=== PATIENT | male | born 1960 | race Caucasian/White ===

== ENCOUNTER 2020-01-01 14:03 | Emergency (ER) | payer BC, OTHER ==
[~2020-01-01] VITALS: Ht 182.9 cm; Wt 133.8 kg
--- OUTSIDE RECORDS SUMMARY | 2020-01-01 14:06 | XMS REPORT | Summary of Care ---
Author Author Sveta Sal M.A. Organization Unknown Address [facility] Phone Unavailable Care Team Providers Care General Repairer Name Role Phone Sveta Sal M.A. 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: Active Stress reaction (308.9, F43.0) Status: Active Mixed hyperlipidemia (272.2, E78.2) Status: Active Need for Tdap vaccination (V06.1, Z23) Status: Active Colon cancer screening (V76.51, Z12.11) Status: Active Sebaceous cyst (706.2, L72.3) Status: Active HTN (hypertension) (401.9, I10) Status: Active Hyperlipidemia (272.4, E78.5) Status: Active Morbid obesity (278.01, E66.01) Status: Active Sleep disturbance (780.50, G47.9) Status: Active Colonoscopy refused (V64.2, Z53.20) Status: Active Medications Name Dates Details Lisinopril-hydroCHLOROthiazide 20-12.5 MG Oral Tablet TAKE 1 TABLET BY MOUTH DAILY. Quantity: 90 IGNACIO FOSTER M.D. * Start : 04-Oct-2017 Active Bisoprolol Fumarate 10 MG Oral Tablet TAKE 1 TABLET BY MOUTH EVERY DAY. * Quantity: 90 Refills: 1 IGNACIO FOSTER M.D. * Start : 04-Oct-2017 Active Lovastatin 20 MG Oral Tablet TAKE 1 TABLET DAILY AT DINNER. * Quantity: 90 Refills: 1 IGNACIO FOSTER M.D. * Start : 17-Jan-2018 Active amLODIPine Besylate 10 MG Oral Tablet TAKE 1 TABLET BY MOUTH EVERY DAY. * Quantity: 90 Refills: 1 IGNACIO FOSTER M.D. * Start : 05-Apr-2018 Active Cialis 20 MG Oral Tablet TAKE 1 TABLET 1 HOUR BEFORE ACTIVITY NEEDED. * Quantity: 4 Refills: 3 HERB ABBASI M.D.ERT * Start : 05-Apr-2018 Active Allergies and Adverse Reactions Name Dates Details No Known Drug Allergies (Allergy) Status: Active Procedures Procedure Dates Details Procedures not documented Immunization Name Dates Details Tdap (Boostrix) Lot #: [id number] on: 29-Oct-2018 Fluzone Quadrivalent 0.5 ML Intramuscular Suspension Comments: refused Family History Name Dates Details Family history of heart attack (V17.3, Z82.49) Status: Active Social History Name Dates Details - Status: Name Dates Details Former smoker Vital Signs Date Test Result Details :33 BP Systolic 156 mm[Hg] Status: Comments: Location: RLE; Position: Sitting BP Diastolic 88 mm[Hg] Status: Comments: Location: RLE; Position: Sitting Heart Rate 51 /min Status: Height 72 in Status: Weight 341 lb Status: Body Mass Index Calculated 46.25 kg/m2 Status: Body Surface Area Calculated 2.67 m2 Status: Temperature 97.5 f Status: Comments: Method: Temporal Respiration Rate 16 /min Status: Results Date Description Value Details :20 [[facility]] LIPID PANEL CHOLESTEROL, TOTAL 128 mg/dl (Normal) Range: <200 HDL CHOLESTEROL 37 mg/dl (Below low threshold) Range: >40 TRIGLYCERIDES 129 mg/dl (Normal) Range: <150 LDL-CHOLESTEROL 70 {MG/DL__CAL} (Normal) Comments: Reference range: <100 Desirable range <100 mg/dL for primary prevention; <70 mg/dL for patients with CHD or diabetic patients with > or=2 CHD risk factors. LDL-C is now calculated using sage Gurrola calculation, which is a validated novel method providing better accuracy than the Friedewald equation in the estimation of LDL-C. Suresh ROSS et al. JEFF. 2013;310(19): 9074-2678 (http:/ /education.Nasty Gal.LiveIntent/faq/XGN305) CHOL/HDLC RATIO 3.5 {CALC} (Normal) Range: <5.0 NON HDL CHOLESTEROL 91 {MG/DL__CAL} (Normal) Range: <130 Comments: For patients with diabetes plus 1 major ASCVD risk factor, treating to a non-HDL-C goal of <100 mg/dL (LDL-C of <70 mg/dL) is considered a therapeutic option. :20 [[facility]] CMP W/EGFR GLUCOSE 86 mg/dl (Normal) Range: 65-99 Comments: Fasting reference interval UREA NITROGEN (BUN) 14 mg/dl (Normal) Range: 7-25 CREATININE 0.87 mg/dl (Normal) Range: 0.70-1.33 Comments: For patients >49 years of age, the reference limitfor Creatinine is approximately 13% higher for peopleidentified as -[place]. eGFR NON- 94 {ML/MIN/1.7} (Normal) Range: > OR=60 eGFR 109 {ML/MIN/1.7} (Normal) Range: > OR=60 BUN/CREATININE RATIO NOT APPLICABLE {CALC} Range: 6-22 SODIUM 137 mmol/L (Normal) Range: 135-146 POTASSIUM 4.7 mmol/L (Normal) Range: 3.5-5.3 CHLORIDE 101 mmol/L (Normal) Range: 98-110 CARBON DIOXIDE 31 mmol/L (Normal) Range: 20-32 CALCIUM 8.9 mg/dl (Normal) Range: 8.6-10.3 PROTEIN, TOTAL 7.6 g/dl (Normal) Range: 6.1-8.1 ALBUMIN 4.1 g/dl (Normal) Range: 3.6-5.1 GLOBULIN 3.5 {G/DL__CALC} (Normal) Range: 1.9-3.7 ALBUMIN/GLOBULIN RATIO 1.2 {CALC} (Normal) Range: 1.0-2.5 BILIRUBIN, TOTAL 0.7 mg/dl (Normal) Range: 0.2-1.2 ALKALINE PHSPHATASE 49 u/l (Normal) Range: 40-115 AST 18 u/l (Normal) Range: 10-35 ALT 21 u/l (Normal) Range: 9-46 [id number] [[facility]] TSH, 3RD GENERATION W/REFLEX TO FT4 Comments: REPORT COMMENT:FASTING:YES TSH, 3RD GENERATION W/REFLEX TO FT4 0.72 {MIU/L} (Normal) Range: 0.40-4.50 Plan of Care Name Dates Details Planned Observations Planned Goals not documented Instructions Name Dates Details Instructions not documented Encounters Appointment; RADHA ABBASI M.D. Encounter Diagnosis: Problem not documented On: 17-Jan-2018 10:00 Appointment; RADHA ABBASI M.D. Encounter Diagnosis: Problem not documented On: 05-Apr-2018 8:15 Appointment; RADHA ABBASI M.D. Encounter Diagnosis: Problem not documented On: 02-May-2018 8:00 Appointment; IGNACIO FOSTER M.D. Encounter Diagnosis: Problem not documented On: 29-Oct-2018 9:00 Appointment; IGNACIO FOSTER M.D. Encounter Diagnosis: Problem not documented On: 09-Jul-2019 10:15 Appointment; WESLEY PALMER P.A. Encounter Diagnosis: Problem not documented On: 11-Nov-2019 7:45
--- OUTSIDE RECORDS SUMMARY | 2020-01-01 14:06 | XMS REPORT | Summary of Care ---
Author Author WESLEY NAILS Organization Unknown Address Unknown Phone Unavailable Care Team Providers Care Psychiatric Clinical Nurse Specialist Name Role Phone RADHA ABBASI M.D. Unavailable Unavailable IGNACIO FOSTER M.D. Unavailable Unavailable WESLEY NAILS Unavailable Unavailable Ignacio Foster MD Unavailable Unavailable [...] 20 MG Oral Tablet TAKE 1 TABLET BY MOUTH DAILY AT DINNER * Quantity: 90 Refills: 1 WESLEY NAILS * Start : 17-Jan-2018 Active amLODIPine Besylate 10 MG Oral Tablet TAKE 1 TABLET BY MOUTH EVERY DAY. * Quantity: 90 Refills: 1 IGNACIO FOSTER M.D. * Start : 05-Apr-2018 Active Cialis 20 MG Oral Tablet TAKE 1 TABLET 1 HOUR BEFORE ACTIVITY NEEDED. * Quantity: 4 Refills: 3 RADHA ABBASI M.D. * Start : 05-Apr-2018 Active Allergies and [...] smoker Vital Signs Date Test Result Details No Known Vitals to report Results Date Description Value Details Results not documented Plan of Care Name Dates Details Planned Observations Planned Goals not documented Interventions Provided Medication Changes* Lovastatin 20 MG Oral Tablet - Renew Instructions Name Dates Details Instructions not documented [...]
--- OUTSIDE RECORDS SUMMARY | 2020-01-01 14:06 | XMS REPORT | Summary of Care ---
Author Author Kerry Long R.N. Unknown Address Unknown Phone Unavailable Care Team Providers Care Value Stream Leader Name Role Phone RADHA ABBASI M.D. Unavailable [...] TABLET BY MOUTH DAILY. Quantity: 90 IGNACIO FOSTRE M.D. * Start : 04-Oct-2017 Active Bisoprolol [...]
[2020-01-01 14:59] LABS: BASOPHILS # (AUTO) 0.1 (0.0-0.1); BASOPHILS % 1.3 % (0.0-1.0); EOSINOPHILS # (AUTO) 0.4 (0.0-0.4); EOSINOPHILS % 4.4 % (0.0-6.0); HEMATOCRIT 42.5 % (38.2-49.6); HEMOGLOBIN 13.7 g/dL (14.0-18.0); LYMPHOCYTES # (AUTO) 2.4 (1.0-3.2); LYMPHOCYTES % 25.1 % (18.0-39.1); MEAN CORPUSCULAR HEMOGLOBIN 30.2 pg (28-32); MEAN CORPUSCULAR HGB CONC 32.2 g/dL (31-35); MEAN CORPUSCULAR VOLUME 93.6 fL (81-99); NEUTROPHILS # (AUTO) 5.4 (2.1-6.9); NEUTROPHILS % 57.1 % (38.7-80.0); PLATELET COUNT 296 x10e3/uL (140-360); RED BLOOD COUNT 4.54 x10e6/uL (4.3-5.7); RED CELL DISTRIBUTION WIDTH 13.2 % (11.7-14.4)
[2020-01-01 15:10] LABS: INR 1.11; PROTHROMBIN TIME 14.6 seconds (11.9-14.5)
[2020-01-01 15:11] LABS: PARTIAL THROMBOPLASTIN TIME 31.6 seconds (23.8-35.5)
[2020-01-01 15:20] LABS: ALANINE AMINOTRANSFERASE 24 IU/L (0-55); ALBUMIN 3.8 g/dL (3.5-5.0); ALKALINE PHOSPHATASE 52 IU/L (40-150); ANION GAP 14.3 mmol/L (8-16); BLOOD UREA NITROGEN 17 mg/dL (7-26); BUN/CREATININE RATIO 15 (6-25); CALCIUM 8.9 mg/dL (8.4-10.2); CARBON DIOXIDE 25 mmol/L (22-29); CHLORIDE 100 mmol/L (98-107); EST GLOMERULAR FILTRATION RATE > 60 ML/MIN (60-); GLUCOSE 88 mg/dL (74-118); POTASSIUM 4.3 mmol/L (3.5-5.1); SODIUM 135 mmol/L (136-145)
== END 2020-01-01 16:55 | disposition home or self-care (01) ==
LOC: ER 14:03
DX: M79.662 Pain in left lower leg (principal); I10 Essential (primary) hypertension; E78.5 Hyperlipidemia, unspecified
CPT/HCPCS: 36415; 80053; 85025; 85610; 85730; 93971; 99284